=== PATIENT | female | born 1995 | race Caucasian/White ===

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

== ENCOUNTER 2020-12-14 05:42 | Emergency (ER) | payer OTHER | END 2020-12-14 07:00 | disposition left against medical advice (07) | LOC: ER1 05:42 | DX: F32.9 Major depressive disorder, single episode, unspecified (principal) | CPT/HCPCS: 99283 ==

== ENCOUNTER 2021-05-23 08:42 | Emergency (ER) | payer OTHER ==
[2021-05-23] MEDS ORDERED: IBUPROFEN600 MG PO (09:17)
[2021-05-23] MEDS ORDERED: NORFLEX 100 MG100 MG PO (09:17)
== END 2021-05-23 09:23 | disposition home or self-care (01) ==
LOC: ER1 08:42
DX: S10.93XA Contusion of unspecified part of neck, initial encounter (principal); Y04.2XXA Assault by strike against or bumped into by another person, initial encounter
CPT/HCPCS: 99283

== ENCOUNTER 2021-10-14 21:27 | Emergency (ER) | payer OTHER ==
[~2021-10-14 21:27] MED LIST: IBUPROFEN600 MG PO; NORFLEX 100 MG100 MG PO
== END 2021-10-14 23:00 | disposition left against medical advice (07) ==
LOC: ER1 21:27
DX: Z53.21 Procedure and treatment not carried out due to patient leaving prior to being seen by health care provider (principal)